=== PATIENT | female | born 1980 | race Caucasian/White ===

== ENCOUNTER 2017-10-06 08:57 | Inpatient (IN) | payer MEDICAID ==
[~2017-10-06] VITALS: Ht 134.6 cm; Wt 81.1 kg
[2017-10-06] MEDS ORDERED: ONDANSETRON 2MG/ML, 2ML IVPush PRN (13:00)
[2017-10-06] MEDS ORDERED: ACETAMINOPHEN 325 MG TABLET PO PRN (13:00)
[2017-10-06] MEDS ORDERED: LABETALOL 5MG/ML, 20ML IVPush PRN (13:00)
[2017-10-06] MEDS: ENOXAPARIN 40 MG/0.4 ML SQ SCH (13:00)
[2017-10-06] MEDS ORDERED: DOCUSATE 100 MG CAPSULE PO PRN (13:00)
[2017-10-06] MEDS ORDERED: BISACODYL 10 MG SUPP PR PRN (13:00)
[2017-10-06] MEDS ORDERED: PLEASE ENTER HEIGHT AND WEIGHT MC SCH (13:30)
[2017-10-06] MEDS ORDERED: PLEASE ENTER ALLERGIES MC SCH (13:30)
[2017-10-06 13:35] LABS: HCT (SEDRATE) 34.5 % (34.6-47.8)
[2017-10-06 14:06] VITALS: BP 113/73
[2017-10-06] MEDS ORDERED: MIDAZOLAM 1 MG/ML, 5ML ONE (14:29)
[2017-10-06] MEDS ORDERED: FENTANYL PF 100 MCG/2ML ONE (14:29)
[2017-10-06] MEDS: DAPTOMYCIN 500 MG in SODIUM CHLORIDE 0.9% 100 ML IVPB SCH (19:05)
[2017-10-06 19:42] VITALS: BP 96/63
[2017-10-06] MEDS: SODIUM CHLORIDE FLUSH 10ML SYR IVF SCH (21:00)
[2017-10-07] MEDS: DIPHENHYDRAMINE 25 MG CAPSULE PO PRN (01:03)
[2017-10-07 01:51] VITALS: BP 116/68
[2017-10-07] MEDS ORDERED: LORazepam 1MG TABLET PO ONE (02:30)
[2017-10-07] MEDS ORDERED: LORazepam 1MG TABLET ONE (02:34)
[2017-10-07 05:45] LABS: BASOPHILS # (AUTO) 0.04 x10^3/uL (0-0.1); BASOPHILS % (AUTO) 0 % (0-1); EOSINOPHILS # (AUTO) 1.13 x10^3/uL (0-0.4); EOSINOPHILS % (AUTO) 8 % (1-7); LYMPHOCYTES % (AUTO) 11 % (22-44); MD NO; MEAN CORPUSCULAR HEMOGLOBIN 25.9 pg (27.0-34.8); MEAN CORPUSCULAR HGB CONC 32.7 g/dL (32.4-35.8); MEAN CORPUSCULAR VOLUME 79.4 fL (80-100); MEAN PLATELET VOLUME 9.1 fL (7.4-10.4); MONOCYTES # (AUTO) 0.66 x10^3/uL (0.2-0.8); MONOCYTES % (AUTO) 5 % (2-9); NEUTROPHILS # (AUTO) 10.77 x10^3/uL (1.8-6.8); NEUTROPHILS % (AUTO) 76 % (42-75); PLATELET COUNT 367 x10^3/uL (130-400); RED BLOOD COUNT 4.26 x10^6/uL (3.82-5.3); RED CELL DISTRIBUTION WIDTH 18.8 % (9.6-15.2)
[2017-10-07 05:52] LABS: ALBUMIN 2.7 g/dL (3.4-5.0); ANION GAP 8 mmol/L (5-15); CALCIUM 8.4 mg/dL (8.5-10.1); CHLORIDE 115 mmol/L (98-107)
[2017-10-07 05:57] LABS: ALANINE AMINOTRANSFERASE 17 U/L (12-78); ALKALINE PHOSPHATASE 103 U/L (45-117); BILIRUBIN,TOTAL 0.2 mg/dL (0.2-1.0); CREATININE 0.71 mg/dL (0.55-1.02); TOTAL PROTEIN 6.9 g/dL (6.4-8.2)
[2017-10-07 07:05] VITALS: BP 102/63
[2017-10-07] MEDS: SODIUM CHLORIDE FLUSH 10ML SYR IVF SCH ×2 (09:00→21:27)
[2017-10-07] MEDS ORDERED: SERT100T PO (09:33)
[2017-10-07] MEDS ORDERED: MAGN1TAB28 PO (09:33)
[2017-10-07] MEDS ORDERED: ARIP15TA3 PO (09:33)
[2017-10-07] MEDS: ENOXAPARIN 40 MG/0.4 ML SQ SCH (13:00)
[2017-10-07 14:30] VITALS: BP 101/62
[2017-10-07] MEDS: DAPTOMYCIN 500 MG in SODIUM CHLORIDE 0.9% 100 ML IVPB SCH (17:30)
[2017-10-07 19:53] VITALS: BP 103/69
[2017-10-07] MEDS: CLINDAMYCIN 300 MG CAPSULE PO SCH (21:27)
[2017-10-08 00:19] VITALS: BP 106/72
[2017-10-08] MEDS: DIPHENHYDRAMINE 25 MG CAPSULE PO PRN ×2 (00:38→20:16)
[2017-10-08] MEDS: CLINDAMYCIN 300 MG CAPSULE PO SCH ×4 (03:43→20:16)
[2017-10-08 07:53] VITALS: BP 101/64
[2017-10-08] MEDS: MAGNESIUM SALICYLATE HOMEMEDPO SCH (09:06)
[2017-10-08] MEDS: CAFFEINE HOMEMEDPO SCH (09:06)
[2017-10-08] MEDS: ARIPIPRAZOLE 15 MG TABLET PO SCH (09:07)
[2017-10-08] MEDS: SERTRALINE HCL 100 MG PO SCH (09:07)
[2017-10-08] MEDS: SODIUM CHLORIDE FLUSH 10ML SYR IVF SCH ×2 (09:07→19:38)
[2017-10-08 12:00] LABS: BASOPHILS # (AUTO) 0.04 x10^3/uL (0-0.1); BASOPHILS % (AUTO) 0 % (0-1); EOSINOPHILS # (AUTO) 0.86 x10^3/uL (0-0.4); EOSINOPHILS % (AUTO) 7 % (1-7); LYMPHOCYTES # (AUTO) 1.55 x10^3/uL (1-3.4); LYMPHOCYTES % (AUTO) 12 % (22-44); MD NO; MEAN CORPUSCULAR HGB CONC 32.2 g/dL (32.4-35.8); MEAN CORPUSCULAR VOLUME 80.8 fL (80-100); MEAN PLATELET VOLUME 9.1 fL (7.4-10.4); MONOCYTES # (AUTO) 0.63 x10^3/uL (0.2-0.8); MONOCYTES % (AUTO) 5 % (2-9); NEUTROPHILS % (AUTO) 76 % (42-75); PLATELET COUNT 365 x10^3/uL (130-400); RED BLOOD COUNT 4.51 x10^6/uL (3.82-5.3); RED CELL DISTRIBUTION WIDTH 18.9 % (9.6-15.2)
[2017-10-08 12:09] LABS: ANION GAP 12 mmol/L (5-15); CALCIUM 8.6 mg/dL (8.5-10.1); CHLORIDE 112 mmol/L (98-107); CREATININE 0.75 mg/dL (0.55-1.02)
[2017-10-08] MEDS: ENOXAPARIN 40 MG/0.4 ML SQ SCH (13:35)
[2017-10-08 14:30] VITALS: BP 104/67
[2017-10-08] MEDS ORDERED: ONDANSETRON ODT 4 MG ONE (16:26)
[2017-10-08 18:33] VITALS: BP 102/65
[2017-10-09 00:31] VITALS: BP 108/72
[2017-10-09] MEDS: CLINDAMYCIN 300 MG CAPSULE PO SCH ×4 (02:29→20:57)
[2017-10-09 05:13] LABS: BASOPHILS # (AUTO) 0.05 x10^3/uL (0-0.1); BASOPHILS % (AUTO) 0 % (0-1); EOSINOPHILS # (AUTO) 0.96 x10^3/uL (0-0.4); EOSINOPHILS % (AUTO) 8 % (1-7); LYMPHOCYTES # (AUTO) 1.82 x10^3/uL (1-3.4); LYMPHOCYTES % (AUTO) 14 % (22-44); MD NO; MEAN CORPUSCULAR HEMOGLOBIN 26.2 pg (27.0-34.8); MEAN CORPUSCULAR HGB CONC 32.4 g/dL (32.4-35.8); MEAN CORPUSCULAR VOLUME 80.7 fL (80-100); MEAN PLATELET VOLUME 9.3 fL (7.4-10.4); MONOCYTES # (AUTO) 0.68 x10^3/uL (0.2-0.8); MONOCYTES % (AUTO) 5 % (2-9); NEUTROPHILS # (AUTO) 9.29 x10^3/uL (1.8-6.8); NEUTROPHILS % (AUTO) 73 % (42-75); PLATELET COUNT 369 x10^3/uL (130-400); RED BLOOD COUNT 4.29 x10^6/uL (3.82-5.3); RED CELL DISTRIBUTION WIDTH 18.6 % (9.6-15.2)
[2017-10-09 05:22] LABS: ANION GAP 10 mmol/L (5-15); CALCIUM 8.3 mg/dL (8.5-10.1); CHLORIDE 115 mmol/L (98-107)
[2017-10-09 05:23] LABS: CREATININE 0.93 mg/dL (0.55-1.02)
[2017-10-09 08:12] VITALS: BP 105/69
[2017-10-09] MEDS: SODIUM CHLORIDE FLUSH 10ML SYR IVF SCH ×2 (09:00→20:56)
[2017-10-09] MEDS: MAGNESIUM SALICYLATE HOMEMEDPO SCH (09:00)
[2017-10-09] MEDS: CAFFEINE HOMEMEDPO SCH (09:00)
[2017-10-09] MEDS: SERTRALINE HCL 100 MG PO SCH (09:00)
[2017-10-09] MEDS: ARIPIPRAZOLE 15 MG TABLET PO SCH (09:18)
[2017-10-09] MEDS: ENOXAPARIN 40 MG/0.4 ML SQ SCH (12:24)
[2017-10-09 15:54] VITALS: BP 99/60
[2017-10-09] MEDS ORDERED: ONDANSETRON ODT 4 MG ONE (17:17)
[2017-10-09] MEDS: POLYETHYLENE GLYCOL 17 GM PACKET PO PRN (17:21)
[2017-10-09 19:21] VITALS: BP 109/66
[2017-10-09] MEDS: DIPHENHYDRAMINE 25 MG CAPSULE PO PRN (21:38)
[2017-10-09] MEDS: CALCIUM CARBONATE 500 MG TAB.CHEW PO PRN (23:39)
[2017-10-10 01:28] VITALS: BP 101/65
[2017-10-10] MEDS: CLINDAMYCIN 300 MG CAPSULE PO SCH ×2 (03:03→09:23)
[2017-10-10] MEDS: POLYETHYLENE GLYCOL 17 GM PACKET PO PRN (03:03)
[2017-10-10] MEDS: CALCIUM CARBONATE 500 MG TAB.CHEW PO PRN (04:38)
[2017-10-10 06:52] LABS: BASOPHILS # (AUTO) 0.07 x10^3/uL (0-0.1); BASOPHILS % (AUTO) 0 % (0-1); EOSINOPHILS # (AUTO) 1.01 x10^3/uL (0-0.4); EOSINOPHILS % (AUTO) 7 % (1-7); LYMPHOCYTES # (AUTO) 1.84 x10^3/uL (1-3.4); LYMPHOCYTES % (AUTO) 12 % (22-44); MD NO; MEAN CORPUSCULAR HGB CONC 32.7 g/dL (32.4-35.8); MEAN CORPUSCULAR VOLUME 79.7 fL (80-100); MONOCYTES # (AUTO) 0.69 x10^3/uL (0.2-0.8); MONOCYTES % (AUTO) 5 % (2-9); NEUTROPHILS % (AUTO) 76 % (42-75); PLATELET COUNT 383 x10^3/uL (130-400); RED BLOOD COUNT 4.48 x10^6/uL (3.82-5.3); RED CELL DISTRIBUTION WIDTH 18.4 % (9.6-15.2)
[2017-10-10 07:06] LABS: CHLORIDE 114 mmol/L (98-107)
[2017-10-10 07:17] LABS: ALANINE AMINOTRANSFERASE 17 U/L (12-78); ALBUMIN 2.9 g/dL (3.4-5.0); ALKALINE PHOSPHATASE 107 U/L (45-117); ANION GAP 10 mmol/L (5-15); BILIRUBIN,TOTAL 0.2 mg/dL (0.2-1.0); CALCIUM 8.6 mg/dL (8.5-10.1); CREATININE 0.72 mg/dL (0.55-1.02); TOTAL PROTEIN 7.4 g/dL (6.4-8.2)
[2017-10-10 07:31] VITALS: BP 104/66
[2017-10-10 07:34] LABS: HCT (SEDRATE) 35.7 % (34.6-47.8)
[2017-10-10] MEDS: CAFFEINE HOMEMEDPO SCH (09:00)
[2017-10-10] MEDS: SERTRALINE HCL 100 MG PO SCH (09:00)
[2017-10-10] MEDS: MAGNESIUM SALICYLATE HOMEMEDPO SCH (09:00)
[2017-10-10] MEDS: SODIUM CHLORIDE FLUSH 10ML SYR IVF SCH (09:00)
[2017-10-10] MEDS: ARIPIPRAZOLE 15 MG TABLET PO SCH (09:24)
[2017-10-10] MEDS ORDERED: CLIN300C8 PO (10:59)
== END 2017-10-10 13:50 | disposition home or self-care (01) | DRG 603 ==
LOC: 3NE 10:42
PROVIDERS: ADMIT Hospitalist; ATTEND Hospitalist
DX: L03.115 Cellulitis of right lower limb (principal); G82.20 Paraplegia, unspecified; G91.9 Hydrocephalus, unspecified; M86.659 Other chronic osteomyelitis, unspecified thigh; L89.899 Pressure ulcer of other site, unspecified stage; F32.9 Major depressive disorder, single episode, unspecified; L03.116 Cellulitis of left lower limb; D64.9 Anemia, unspecified; S81.802A Unspecified open wound, left lower leg, initial encounter; S81.801A Unspecified open wound, right lower leg, initial encounter; X58.XXXA Exposure to other specified factors, initial encounter; L89.159 Pressure ulcer of sacral region, unspecified stage; Z93.3 Colostomy status; Z98.1 Arthrodesis status; Z98.2 Presence of cerebrospinal fluid drainage device; Z88.0 Allergy status to penicillin; Z88.7 Allergy status to serum and vaccine; Z88.1 Allergy status to other antibiotic agents; Z91.040 Latex allergy status; Z88.8 Allergy status to other drugs, medicaments and biological substances; Y93.89 Activity, other specified; Y92.89 Other specified places as the place of occurrence of the external cause
CPT/HCPCS: 36415; 80048; 80053; 85025; 85651; 86140; 87040; 93970; 99156; 99157; J0878; J2250; J2405; J3010; Q0163